=== PATIENT | female | born 1970 | race Caucasian/White ===

== ENCOUNTER 2018-11-20 15:44 | Emergency (ER) | payer BC ==
[~2018-11-20] VITALS: Ht 165.1 cm; Wt 86.0 kg
[2018-11-20 15:49] VITALS: Ht 165.1 cm; Wt 86.0 kg
--- NOTE | 2018-11-20 16:50 | ERD ---
ER Documentation Chief Complaint Chief Complaint feels like chicken bone stuck in throat x3d. occ dry cough noted. HPI This is a 48-year-old female patient who presents emergency room with complaint of sensation of having chicken bone stuck in her left neck x3 days. Patient states that she was eating a chicken leg when she did choke and vomit. States pain with swallowing is increasing and now is noticing a purulent type drainage. Denies hematemesis, no hemoptysis, is able to swallow but it is painful. No fevers, clear speech. nad. ROS All systems reviewed and are negative except as per history of present illness. Allergies Allergies: Coded Allergies: dipyrone (Verified Allergy, Unknown, 11/20/18) PMhx/Soc Medical and Surgical Hx: pt denies Medical Hx, pt denies Surgical Hx Hx Alcohol Use: No Hx Substance Use: No Hx Tobacco Use: No FmHx Family History: No diabetes, No coronary disease, No other Physical Exam Vitals Vital Signs Date Temp Pulse Resp B/P (MAP) Pulse Ox O2 O2 Flow FiO2 Time Delivery Rate 11/20/18 98.3 77 18 141/82 98 Room Air 20:07 (101) 11/20/18 98.5 111 22 132/58 99 15:49 (82) Physical Exam Const: No acute distress Head: Atraumatic Eyes: Normal Conjunctiva, PERRL ENT: Normal External Ears, Nose and Mouth. Pharynx pink, no lesions, no exudate, no FB visible. NO stridor, no drooling, no dysphagia. Neck: Full range of motion. No meningismus. No mass palpated, no lymphadenopathy. Tender at left upper anterior neck. No swelling, no erythema. Resp: Clear to auscultation bilaterally, no wheezing, no rales or rhonchi Cardio: Regular rate and rhythm, no murmurs Abd: Soft, non tender, non distended. Normal bowel sounds Neur: Awake and alert, clear speech, steady gait Psych: Normal Mood and Affect Result Diagram: 11/20/18 1658 11/20/18 1658 Results 24 hrs Laboratory Tests Test 11/20/18 16:58 11/20/18 17:56 White Blood Count 6.8 10^3/ul Red Blood Count 4.24 10^6/ul Hemoglobin 12.3 g/dl Hematocrit 38.0 % Mean Corpuscular Volume 89.6 fl Mean Corpuscular Hemoglobin 29.0 pg Mean Corpuscular Hemoglobin Concent 32.4 g/dl Red Cell Distribution Width 13.3 % Platelet Count 228 10^3/UL Mean Platelet Volume 9.8 fl Immature Granulocytes % 0.300 % Neutrophils % 60.3 % Lymphocytes % 31.7 % Monocytes % 6.0 % Eosinophils % 1.3 % Basophils % 0.4 % Nucleated Red Blood Cells % 0.0 /100WBC Immature Granulocytes # 0.020 10^3/ul Neutrophils # 4.1 10^3/ul Lymphocytes # 2.2 10^3/ul Monocytes # 0.4 10^3/ul Eosinophils # 0.1 10^3/ul Basophils # 0.0 10^3/ul Nucleated Red Blood Cells # 0.0 10^3/ul Sodium Level 143 mmol/L Potassium Level 4.8 mmol/L Chloride Level 105 mmol/L Carbon Dioxide Level 31 mmol/L Anion Gap 7 Blood Urea Nitrogen 18 mg/dl Creatinine 0.72 mg/dl Est Glomerular Filtrat Rate mL/min > 60 mL/min Glucose Level 103 mg/dl Calcium Level 10.0 mg/dl Bedside Urine pH (LAB) 7.0 Bedside Urine Protein (LAB) Negative Bedside Urine Glucose (UA) Negative Bedside Urine Ketones (LAB) Negative Bedside Urine Blood 2+ Bedside Urine Nitrite (LAB) Negative Bedside Urine Leukocyte Esterase (L Negative POC Beta HCG, Qualitative NEGATIVE Current Medications Medications Dose Sig/Sun Start Time Status Last (Trade) Ordered Route PRN Stop Time Admin Dose Reason Admin Sodium 1,000 ml @ Q1H IV 11/20/18 DC 11/20/18 Chloride 1,000 mls/hr 17:00 11/20/18 19:24 20:10 IV Flush 10 ml STK-MED 11/20/18 DC (NS 10 ml) ONCE .ROUTE 18:33 11/20/18 18:34 Sodium 100 ml @ ud STK-MED 11/20/18 DC Chloride ONCE .ROUTE 18:33 11/20/18 18:34 Iohexol 150 ml STK-MED 11/20/18 DC (Omnipaque ONCE .ROUTE 18:33 11/20/18 300mg/ ml) 18:34 Procedures/MDM PROCEDURES/MDM DIAGNOSTIC IMAGING: Read by radiologist. CT Neck Contrast-enhanced CT of the neck demonstrates no evidence of radiopaque foreign body. The exam is unremarkable. LAB INTERPRETATION: Blood work normal, no anemia, no leukocytosis, no kidney dysfunction -Medications: Normal saline MDM: This is a 48-year-old female patient who presents emergency room with complaint of pain in her throat increasing over the last 3 days after choking on a chicken leg. Patient with frequent throat clearing, states she is spitting up a purulent drainage, no hematemesis, no difficulty swallowing, clear speech. CT of the neck with contrast was obtained to evaluate for retained foreign body as well as potential infection. CT negative for concern for foreign body, infection, abnormality that would indicate threat to airway. Patient and instructed on increasing hydration, eating soft foods, use of ibuprofen for pain. Patient instructed on red flags and signs and symptoms of worsening of condition and when to return to the emergency room. Patient well-appearing, no drooling, no difficulty breathing at time of discharge. DISPOSITION and PLAN: RX: None The patient has been discharge home to follow-up with community physician. Departure Diagnosis: Primary Impression: Throat pain Condition: Stable ARABELLA GONZALEZ NP Nov 20, 2018 16:50
[2018-11-20] MEDS: SOD CHLORIDE 0.9% 1,000 ML IV SCH ×2 (16:57→19:24)
[2018-11-20] MEDS ORDERED: SOD CHLORIDE 0.9% 100 ML ONE (18:33)
[2018-11-20] MEDS ORDERED: IOHEXOL 300MG/ML 150 ML BTL ONE (18:33)
[2018-11-20 20:07] VITALS: BP 141/82; PULSE 77; RESP 18
== END 2018-11-20 20:05 | disposition home or self-care (01) ==
LOC: FTE 15:44
DX: R07.0 Pain in throat (principal)
CPT/HCPCS: 36415; 70491; 80048; 81003; 81025; 85025; 96360; 99285; J7030; Q9967; Z7610